=== PATIENT | female | born 1995 | race Caucasian/White ===

== ENCOUNTER 2018-07-24 03:26 | Emergency (ER) | payer BC ==
[~2018-07-24] VITALS: Ht 149.9 cm; Wt 56.8 kg
[2018-07-24] MEDS ORDERED: ZOLOFT 25MG25 MG (03:45)
[2018-07-24] MEDS ORDERED: [UNRECOGNIZED DRUG - OTHER] PO (03:45)
[2018-07-24] MEDS ORDERED: SINGULAIR 110 MG/TAB PO (03:45)
[2018-07-24] MEDS ORDERED: ALLEGRA ALLERGY60 MG PO (03:46)
[2018-07-24] MEDS ORDERED: LO LOESTRIN FE1 TAB PO (03:46)
[2018-07-24] MEDS ORDERED: PROAIR HFA0.09 MG/AC IH (03:46)
[2018-07-24] MEDS ORDERED: BREO IH (03:46)
[2018-07-24 03:47] VITALS: TEMP 98
[2018-07-24 05:17] VITALS: BP 103/64; PULSE 89
== END 2018-07-24 05:17 | disposition home or self-care (01) ==
LOC: COL.ER 03:26
DX: J45.901 Unspecified asthma with (acute) exacerbation (principal); Z90.89 Acquired absence of other organs
CPT/HCPCS: J2060; J7030